=== PATIENT | female | born 2000 | race Caucasian/White ===

== ENCOUNTER 2021-09-24 16:03 | Emergency (ER) | payer OTHER ==
[~2021-09-24 16:03] MED LIST: BENTYL10 MG PO; ONDANSETRON ODT4 MG PO; PEPCID AC20 MG PO; PROZAC20 MG PO; ZOFRAN ODT4 MG PO/SL; ZOFRAN4 MG PO
[2021-09-24 19:11] LABS: BASOPHIL 0.2 % (0-2); EOSINOPHIL 1.3 % (0-5); HCT 37.3 % (37.0-47.0); HGB 11.9 g/dl (12.5-16.0); LYMPHOCYTE 39.3 % (15-48); MCH 27.7 pg (25.0-31.0); MCHC 31.9 g/dL (32.0-36.0); MCV 86.7 fL (78.0-100.0); MONOCYTE 6.5 % (0-12); MPV 10.9 fL (6.0-9.5); NEUTROPHIL 52.5 % (41-80); NRBC 0; PLT 202 K/uL (150-400); RDW 12.7 % (11.5-14.0); WBC 4.5 K/uL (4.0-10.5)
[2021-09-24 19:30] LABS: BUN/CREAT RATIO (CALC) 20.5 RATIO; CREATININE 0.73 mg/dL (0.51-0.95)
[2021-09-24 20:07] LABS: BILIRUBIN NEGATIVE (NEGATIVE); BLOOD 2+ Ery/uL (NEGATIVE); CLARITY SLIGHTLY HAZY (CLEAR); COLOR YELLOW (YELLOW); GLUCOSE (U) NORMAL (NORMAL); LEUKOCYTES NEGATIVE Leu/uL (NEGATIVE); NITRITE NEGATIVE (NEGATIVE); PROTEIN NEGATIVE (NEGATIVE); UROBILINOGEN 0.2 mg/dL (0.2-1.0); pH 6.5 (5.0-9.0)
[2021-09-24 20:11] LABS: SQUAMOUS EPITHELIAL CELLS RARE; URINARY WBC RARE
== END 2021-09-24 20:59 | disposition home or self-care (01) ==
LOC: FER 16:03
PROVIDERS: Nurse Practitioner Family
DX: N94.6 Dysmenorrhea, unspecified (principal); Z88.2 Allergy status to sulfonamides; Z88.6 Allergy status to analgesic agent; Z28.310 Unvaccinated for COVID-19
CPT/HCPCS: 36415; 80048; 81001; 85025; J1885

== ENCOUNTER 2021-12-16 19:52 | Emergency (ER) | payer OTHER ==
[2021-12-16 20:32] LABS: BASOPHIL 0.1 % (0-2); EOSINOPHIL 0 % (0-5); HCT 37.8 % (37.0-47.0); HGB 12.3 g/dl (12.5-16.0); LYMPHOCYTE 9.1 % (15-48); MCH 27.2 pg (25.0-31.0); MCHC 32.5 g/dL (32.0-36.0); MCV 83.6 fL (78.0-100.0); MPV 10.9 fL (6.0-9.5); NEUTROPHIL 85.5 % (41-80); NRBC 0; PLT 247 K/uL (150-400); RBC 4.52 M/uL (4.20-5.40); RDW 13.8 % (11.5-14.0); WBC 7.4 K/uL (4.0-10.5)
[2021-12-16 20:47] LABS: ALBUMIN 3.8 g/dL (3.4-5.0); BUN/CREAT RATIO (CALC) 21.1 RATIO; CREATININE 0.71 mg/dL (0.51-0.95); POTASSIUM 2.9 mmol/L (3.5-5.1); TOTAL PROTEIN 6.8 g/dL (6.4-8.2)
[2021-12-16 21:11] LABS: CORONAVIRUS 2019 SARS-COV-2 NEGATIVE (NEGATIVE); INFLUENZA A NAA NEGATIVE (NEGATIVE)
[2021-12-16 22:17] LABS: MONOSPOT (MONONUCLEOSIS) NEGATIVE (NEGATIVE)
[2021-12-18 08:09] LABS: HBSAG SCREEN Negative (Negative); HCV AB <0.1 (0.0-0.9); HEP A AB, IGM Negative (Negative); HEP B CORE AB, IGM Negative (Negative)
== END 2021-12-16 23:37 | disposition home or self-care (01) ==
LOC: FER 19:52
PROVIDERS: Emergency Medicine
DX: R11.2 Nausea with vomiting, unspecified (principal); R42 Dizziness and giddiness; R55 Syncope and collapse; R79.89 Other specified abnormal findings of blood chemistry; E87.6 Hypokalemia; F17.200 Nicotine dependence, unspecified, uncomplicated; Z20.822 Contact with and (suspected) exposure to COVID-19; Z88.2 Allergy status to sulfonamides; Z88.5 Allergy status to narcotic agent
CPT/HCPCS: 36415; 80053; 80074; 84703; 85025; 86308; 93005; J1885; J2405; J3475; J3480; J7030; J7050; U0002